=== PATIENT | female | born 1960 | race Caucasian/White ===

== ENCOUNTER 2019-10-24 11:54 | Emergency (ER) | payer OTHER, SELFPAY ==
--- NOTE | 2019-10-24 12:08 | ED.EAR ---
HPI - Ear Problem General Chief complaint: Ear Stated complaint: ear pain Time Seen by Provider: 10/24/19 12:09 History of Present Illness HPI Narrative: Patient presents with right ear pain. Patient states she had a visual telehealth visit last week and was given a steroid injection and placed on Ciprodex eardrops. Patient states pharmacist substituted eardrops states that the ones that she is on now would work as well. Patient presents with increased right ear pain and discomfort. Patient states the pain keeps her up at night. Patient denies any fever no shortness of breath no cough. Related Data Home Medications Medication Instructions Recorded Confirmed naproxen 500 mg BID 10/24/19 10/24/19 Allergies Allergy/AdvReac Type Severity Reaction Status Date / Time codeine Allergy Intermediate Vomiting Verified 11/20/16 15:10 Review of Systems Review of Systems: Narrative: CONSTITUTIONAL: Denies fever, chills, or sweats. EYES: Denies visual changes, redness, or discharge. ENT: Denies rhinorrhea, congestion, sore throat, or otalgia. Right ear pain CARDIOVASCULAR: Denies chest pain, palpitations, or edema. RESPIRATORY: Denies cough or dyspnea. GASTROINTESTINAL: Denies abdominal pain, nausea, vomiting, or diarrhea. GENITOURINARY: Denies dysuria or hematuria. SKIN: Denies rash or itching. MUSCULOSKELETAL: Denies back pain, joint pain, or myalgia. NEUROLOGIC: Denies headache, numbness, or weakness. PSYCHIATRIC: Denies anxiety or depression. [facility] Family History Family History (Updated 10/07/13 @ 07:13 by DOCTOR UNKNOWN) Mother Hypertension Carcinoma of colon Family history of coronary artery disease No family history of malignant neoplasm No family history of hypertension Father Carcinoma of colon Hypertension Social History Social History Smoking status: Never smoker Second hand tobacco smoke exposure: No Alcohol intake: never Gender identity (if verbalized by the patient): Female Comments At time of signature, agree with nursing past medical, surgical, social and family history. There is no relevant family history pertinent to the presenting complaint Exam Narrative: Exam Narrative: GENERAL: Well-appearing, well-nourished, and in no acute distress. HEAD: Normocephalic, atraumatic. EYES: PERRLA and EOMI. ENT: Nares clear, no rhinorrhea or epistaxis. Mucous membranes moist. Moderate erythremia to right canal tenderness with movement, right TM bulging left TM mild dullness mild postnasal drainage NECK: Supple. CHEST: Clear to auscultation. No respiratory distress. HEART: Regular rate and rhythm. No murmur heard. Normal peripheral pulses. ABDOMEN: Soft, nontender, nondistended, normal active bowel sounds. EXTREMITIES: Normal range of motion. No edema. SKIN: Warm, dry, no rash. NEURO: No focal deficits. Alert and oriented x3. [place] Coma Scale Eye Opening: Spontaneous 4 [place] Coma Scale Motor: Obeys Commands 6 [place] Coma Scale Verbal: Oriented 5 [place] Coma Scale Total 15 Course Vital Signs Vital signs: Vital Signs Temperature 36.6 C 10/24/19 12:09 Pulse Rate 104 H 10/24/19 12:09 Respiratory Rate 10/24/19 12:09 Blood Pressure 136/70 10/24/19 12:09 Pulse Oximetry 99 10/24/19 12:09 Temperature 36.6 C 10/24/19 12:09 Pulse Rate 104 H 10/24/19 12:09 Respiratory Rate 10/24/19 12:09 Blood Pressure 136/70 10/24/19 12:09 Pulse Oximetry 99 10/24/19 12:09 Please sub ofloxacin 0.3% plus dexamethasone 0.1% with same directions if insurance prefers. Please BENTLEY schedule a followup visit with your personal physician for further evaluation and treatment. Including recheck and discussion of your blood pressure. If your symptoms persist, change or worsen significantly before you can contact your personal physician then please, without delay, go to the emergency department for further evaluation Medical Decision Making Vital Signs Vital Signs: Vital
[2019-10-24 12:09] VITALS: BP 136/70; PULSE 104; RESP 20; TEMP 36.6; O2SAT 99
== END 2019-10-24 12:24 | disposition home or self-care (01) ==
PROVIDERS: Emergency Provider Nurse Practitioner Family; PCP Internal Medicine
DX: H60.91 Unspecified otitis externa, right ear (principal); H66.91 Otitis media, unspecified, right ear
CPT/HCPCS: 99213; G0463

== ENCOUNTER 2019-11-01 07:50 | Emergency (ER) | payer OTHER, SELFPAY ==
--- NOTE | ~2019-11-01 | CT_ITS ---
EXAMINATION: CT brain wo con DATE: 11/01/2019 09:08 INDICATION: Headache TECHNIQUE: Computed tomography (CT) of the head was performed without intravenous contrast. The dose- length product was 605.33 mGy-cm. Automated exposure control and iterative reconstruction technique w ere employed. COMPARISON: None FINDINGS: No acute intracranial hemorrhage, infarction, mass or mass effect. No ventriculomegaly or m idline shift. Basilar cisterns are patent. Paranasal sinuses and mastoids are pneumatized. No depress ed skull fractures. IMPRESSION: 1. No acute intracranial abnormality. Reviewed, dictated and finalized at location A.
[2019-11-01 08:01] VITALS: BP 126/81; PULSE 110; RESP 18; TEMP 36.5; O2SAT 98
--- NOTE | 2019-11-01 08:34 | ED.HA ---
HPI - Headache General Chief Complaint: Headache Stated Complaint: N/V - head pain Time Seen by Provider: 11/01/19 08:10 Source: patient and family Mode of arrival: ambulatory Limitations: no limitations History of Present Illness HPI Narrative: 59-year-old female Presents complaining of a constant headache for 2+ weeks Different than her more typical migraines because it is global and not unilateral She was previously seen by a nurse practitioner at urgent care and diagnosed with otitis media, she took Augmentin for 10 days, but does not report feeling any better Other associated symptoms besides the headache include generalized fatigue weakness and feeling unwell She is not having a fever, she does not have neck pain, she does not have neurologic symptoms, she does not have visual symptoms, she does not have sinus symptoms Her ear might be feeling a little bit better MD elicited complaint: headache Onset (ago): week(s) Onset description: gradually Location: diffuse Quality & Timing: aching Relieving factors: nothing Associated symptoms: weakness and malaise Related Data Home Medications Medication Instructions Recorded Confirmed naproxen 500 mg BID 10/24/19 10/24/19 Allergies Allergy/AdvReac Type Severity Reaction Status Date / Time codeine Allergy Intermediate Vomiting Verified 11/01/19 08:08 Review of Systems Review of Systems: All systems reviewed & are unremarkable except as noted in HPI and below Constitutional: Constitutional: Denies chills, Reports fatigue, Denies fever(s), Denies headache(s) and Denies night sweats Eyes: Eyes: Denies change in vision, Denies loss of vision and Denies other visual disturbances ENT: Denies headache(s), Denies hoarseness, Denies epistaxis, Denies nasal congestion and Denies sore throat Cardiovascular: Cardiovascular: Denies chest pain, Denies leg edema, Denies palpitations and Denies dyspnea Respiratory: Respiratory: Denies cough, Denies dyspnea and Denies wheezing Gastrointestinal: Gastrointestinal: Denies abdominal pain, Denies diarrhea, Reports nausea and Denies vomiting Genitourinary: Genitourinary: Denies hematuria, Denies urinary frequency and Denies dysuria Musculoskeletal: Musculoskeletal: Denies abnormal gait, Reports myalgias, Denies deformity, Denies joint swelling, Denies muscle weakness and Denies numbness Integumentary/Breasts: Skin/Breast: Denies rash, Denies unusual bruising and Denies wounds Neurologic: Denies abnormal gait, Denies headache(s), Denies focal weakness, Denies loss of vision and Denies numbness Psychiatric: Psychiatric: Reports no additional psychiatric complaints Endocrine: Endocrine: Reports fatigue and Denies palpitations Hematologic/Lymphatic: Hematologic/Lymphatic: Denies easy bleeding and Denies easy bruising Allergic/Immunologic: Allergic/Immunologic: Denies wheezing [facility] Family History Family History (Updated 10/07/13 @ 07:13 by DOCTOR UNKNOWN) Mother Hypertension Carcinoma of colon Family history of coronary artery disease No family history of malignant neoplasm No family history of hypertension Father Carcinoma of colon Hypertension Social History Social History Smoking status: Never smoker Second hand tobacco smoke exposure: No Alcohol intake: never Gender identity (if verbalized by the patient): Female Exam Const: General: well developed Nutritional Appearance: obese Orientation/consciousness: patient oriented x3 (alert) and Other orientation findings (Alert) Limitations: no limitations HENMT: Head: normocephalic and atraumatic Ears: external ears normal and TM abnormal (Effusion on the right) General nose exam: No nasal discharge present and no epistaxis Face and sinus: face symmetric Mouth: Yes tongue normal and Yes moist mucous membranes Throat: other (No exudate, no erythema) Eyes: Conjunctivae: conjunctivae normal Sclera: sclerae normal EOM: EOMs intact bilatera
[2019-11-01 09:05] LABS: Basophils Percent Auto 0.4 % (0.2-1.2); Eosinophils Absolute Auto 0.1 K/mm3 (0-0.3); Eosinophils Percent Auto 1.1 % (0-4.4); Hematocrit 36.6 % (37.0-47.0); Hemoglobin 12.6 g/dL (12.0-15.0); Immature Granulocyte Absolute 0.04 K/mm3 (0.00-0.031); Immature Granulocyte Percent A 0.5 % (0-0.5); Lymphocytes Absolute Auto 3.22 K/mm3 (0.9-3.2); Lymphocytes Percent Auto 43.9 % (18.3-44.2); Mean Corpuscular HGB Conc 34.4 g/dl (32-36); Mean Corpuscular Hemoglobin 29.6 pg (26-34); Mean Corpuscular Volume 85.9 fl (80-100); Mean Platelet Volume 9.7 fl (7.4-10.4); Monocytes Absolute Auto 0.5 K/mm3 (0.1-0.6); Monocytes Percent Auto 7.1 % (2.6-8.5); Neutrophils Absolute Auto 3.4 K/mm3 (1.3-6.7); Platelet Count Result 172 k/mm3 (150-375); Red Blood Count 4.26 M/mm3 (4.2-5.4); Red Cell Distribution Width 14.2 % (11.5-14.5); White Blood Count 7.3 K/mm3 (4.5-10.0)
[2019-11-01 09:19] LABS: Anion Gap 6 mmol/L (8-16); Blood Urea Nitrogen 9 mg/dL (7-17); CRP 6.4 mg/dL (<1.0); Calcium 8.8 mg/dL (8.4-10.2); Carbon Dioxide 26 mmol/L (22-30); Chloride 99 mmol/L (98-107); Estimated CRCL calculation 110 ml/min; Estimated Glomerular Filt Rate > 60; Glucose 132 mg/dL (65-105); Potassium 3.4 mmol/L (3.4-5.0); Sodium 131 mmol/L (137-145)
[2019-11-01] MEDS: LACTATED RINGERS 1,000 ML 999 ML IV CONT (09:20)
[2019-11-01] MEDS: PROCHLORPERAZINE EDISYLATE 10 MG/2 ML VIAL IV PUSH (09:20)
[2019-11-01 09:21] VITALS: BP 121/69; PULSE 98; RESP 18; O2SAT 98
[2019-11-01 12:14] VITALS: BP 106/78; PULSE 103; RESP 18; O2SAT 99
[2019-11-01 12:35] LABS: Appearance CSF Clear (Clear); CSF source CSF; Color CSF Colorless (Colorless)
[2019-11-01 12:36] LABS: Nucleated Cell CSF 3 /uL (0-5); Red Blood Cell CSF 3 (0-2)
[2019-11-01 12:38] LABS: Lymphocytes CSF 67 % (40-80)
[2019-11-01 12:39] LABS: Monocytes CSF 33 % (15-45)
[2019-11-01 13:09] LABS: Glucose CSF 58 mg/dL (40-70); Total Protein CSF 51 mg/dL (12-60)
[2019-11-01] MEDS: KETOROLAC 30 MG/ML VIAL (*BKC) IV PUSH (13:41)
[2019-11-01 13:42] VITALS: BP 133/84; PULSE 104; RESP 18; O2SAT 100
[2019-11-01 20:24] LABS: SARS-CoV-2 RNA PCR Negative
== END 2019-11-01 13:45 | disposition home or self-care (01) ==
PROVIDERS: Emergency Provider Emergency Medicine; PCP Internal Medicine
DX: R51 Headache (principal); Z20.828 Contact with and (suspected) exposure to other viral communicable diseases
CPT/HCPCS: 36415; 62270; 70450; 80048; 82945; 84157; 85025; 86140; 87635; 89051; 96361; 96374; 96375; 99285; C9803; J0780; J1885; J7120; U0003

== ENCOUNTER 2019-12-25 11:23 | Outpatient (NON) | payer OTHER, SELFPAY ==
[2019-12-28 13:59] LABS: SARS-CoV-2 RNA PCR Negative
== END 2019-12-25 11:24 ==
LOC: ANHCOVIDDT 11:24
PROVIDERS: PCP Internal Medicine; Visit Provider Internal Medicine
DX: Z20.828 Contact with and (suspected) exposure to other viral communicable diseases (principal)
CPT/HCPCS: 87635; C9803; U0003

== ENCOUNTER 2019-12-25 13:20 | Emergency (ER) | payer OTHER, SELFPAY ==
[2019-12-25 13:34] VITALS: BP 156/98; PULSE 82; RESP 20; TEMP 35.7; O2SAT 99
--- NOTE | 2019-12-25 13:47 | ED.BACK ---
HPI - Back Pain/Injury General Chief Complaint: Back Pain/Injury Stated Complaint: back pain Time Seen by Provider: 12/25/19 13:48 Source: patient and RN notes reviewed Mode of arrival: ambulatory Limitations: no limitations History of Present Illness HPI Narrative: 59 year old female who presents to [facility] with complaints of pain to her left lower back radiating down her posterior left leg to ankle since November. 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 Patient has been dealing also with DVT in her right leg and pulmonary embolism since early November and is on Eliquis twice daily and has been under the care of a credit control manager at [facility]. Patient states she has been under care of her physician for a wound on her left lower abdomen which she thinks is from a heating pad. Patient states that she has been on antibiotics of Keflex since the 15 of December and she wants the wound looked at also. Patient has picture of wound at first of occurrence with present area decreased at least by 50% with irregular shaped wound with light yellow center and no surrounding redness, total measures 3cm X4cm, no warmth or drainage noted. Patient has been covering with gauze dressing. MD elicited complaint: back pain Pertinent past history: prior back pain Timing: constant Severity: moderate Pain scale (0-10): 7 Similar Symptoms Previously: Yes Treatments prior to arrival: heat therapy and acetaminophen Work related injury: No Related Data Home Medications Medication Instructions Recorded Confirmed apixaban [Eliquis] mg 12/25/19 Allergies Allergy/AdvReac Type Severity Reaction Status Date / Time codeine Allergy Intermediate Vomiting Verified 11/10/19 09:01 Review of Systems Review of Systems: Narrative: CONSTITUTIONAL: Denies fever, chills, or sweats. EYES: Denies visual changes, redness, or discharge. ENT: Denies rhinorrhea, congestion, sore throat, or otalgia. CARDIOVASCULAR: Denies chest pain, palpitations, or edema. RESPIRATORY: Denies any present cough or any acute dyspnea. GASTROINTESTINAL: Denies abdominal pain, nausea, vomiting, or diarrhea. GENITOURINARY: Denies dysuria or hematuria. SKIN: Denies rash or itching.positive for healing wound to left lower abdomen area MUSCULOSKELETAL: Positive for left back pain radiating down posterior left leg to foot,no other stated joint pain, or myalgia. NEUROLOGIC: Denies headache, numbness, or weakness. PSYCHIATRIC: Positive history of anxiety or depression. All systems reviewed & are unremarkable except as noted in HPI and below PMFSH Past Medical History Medical History (Updated 12/25/19 @ 16:41 by Joseline Real NP) DVT (deep venous thrombosis) Pulmonary embolism Surgical History Surgical History (Updated 12/25/19 @ 17:33 by Joseline Real NP) H/O: hysterectomy Hx of cholecystectomy Hx of tonsillectomy Family History Family History (Updated 10/07/13 @ 07:13 by DOCTOR UNKNOWN) Mother Hypertension Carcinoma of colon Family history of coronary artery disease No family history of malignant neoplasm No family history of hypertension Father Carcinoma of colon Hypertension Social History Social History (Updated 12/25/19 @ 17:35 by Joseline Real NP) Smoking status: Never smoker Second hand tobacco smoke exposure: No Alcohol intake: current Alcohol use details: rare social Substance use: never Living arrangements: with family Gender identity (if verbalized by the patient): Female Comments At time of signature, agree with nursing past medical, surgical, social and family history. There is no relevant family history pertinent to the presenting complaint Exam Narrative: Exam Narrative: GENERAL: Well-appearing, well-nourished, and in no acute distress. HEAD: Normocephalic, atraumatic. EYES: PERRLA and EOMI. ENT: Nares clear, no rhinorrhea or epistaxis
== END 2019-12-25 14:24 | disposition home or self-care (01) ==
PROVIDERS: Emergency Provider Registered Nurse; PCP Internal Medicine
DX: M54.32 Sciatica, left side (principal); S31.104D Unspecified open wound of abdominal wall, left lower quadrant without penetration into peritoneal cavity, subsequent encounter; X58.XXXD Exposure to other specified factors, subsequent encounter; Z86.718 Personal history of other venous thrombosis and embolism; Z86.711 Personal history of pulmonary embolism; Z79.01 Long term (current) use of anticoagulants
CPT/HCPCS: 99213; G0463

== ENCOUNTER 2021-04-10 12:43 | Emergency (ER) | payer OTHER, SELFPAY ==
--- NOTE | 2021-04-10 12:47 | ED.URI ---
HPI - URI/Sore Throat General Chief Complaint: Headache Stated Complaint: sinus pain Time Seen by Provider: 04/10/21 13:15 Source: patient, RN notes reviewed and old records reviewed Mode of arrival: ambulatory Limitations: no limitations History of Present Illness HPI Narrative: 60-year-old female [facility] of sweating dizziness and headache. Reports started to feel pressure, like a sinus infection, on left side of face this morning at work and not feeling well. She left work and stopped it [facility] on the way home. Reports pain and pressure on left sinuses. Had sinus headache this morning. Admits this does not feel like her usual migraine headache. Denies vision changes, blurry vision, or floaters. Reports mild runny nose this morning. [facility] at [facility]. Reports feeling dizzy, sensitive to light, and sweating. Denies sore throat or earache or cough. Denies chest pain or discomfort. Laying on exam table, denies dizziness while laying down. Continues to feel nauseated. Denies pain with urination or urinary frequency. Denies denies back pain MD elicited complaint: cough, sore throat, rhinorrhea and nasal congestion Treatments prior to arrival: none Related Data Home Medications Medication Instructions Recorded Confirmed apixaban [Eliquis] 5 mg PO BID 12/25/19 04/10/21 spironolactone 50 mg PO DAILY 04/06/21 04/10/21 esomeprazole magnesium [Nexium] 20 mg PO DAILY 04/10/21 04/10/21 Allergies Allergy/AdvReac Type Severity Reaction Status Date / Time codeine AdvReac Intermediate Vomiting Verified 04/10/21 13:08 Review of Systems Review of Systems: CONSTITUTIONAL: Denies malaise, chills, or fever. Reports sweating EYES: Denies visual changes, redness, or discharge. ENT: Denies otalgia and sore throat. Reports mild runny nose. Reports left-sided sinus pressure. CARDIOVASCULAR: Denies chest pain, palpitations, or edema. RESPIRATORY: Denies cough. Denies dyspnea, shortness of breath or difficulty breathing.. GASTROINTESTINAL: Denies abdominal pain or diarrhea. Vomited x1, feels nauseated. SKIN: Denies rash or itching. MUSCULOSKELETAL: Denies myalgia. NEUROLOGIC: Reports headache. All systems reviewed & are unremarkable except as noted in HPI and below PMFSH Past Medical History Medical History DVT (deep venous thrombosis) Pulmonary embolism Surgical History Surgical History H/O: hysterectomy Hx of cholecystectomy Hx of tonsillectomy Family History Family History Mother Hypertension Carcinoma of colon Family history of coronary artery disease No family history of malignant neoplasm No family history of hypertension Father Carcinoma of colon Hypertension Social History Social History Smoking status: Never smoker Second hand tobacco smoke exposure: No Alcohol intake: current Alcohol use details: rare social Substance use: never Gender identity (if verbalized by the patient): Female Spiritual care concerns: No Comments At time of signature, agree with nursing past medical, surgical, social and family history. There is no relevant family history pertinent to the presenting complaint Exam Narrative: GENERAL: Alert well-nourished, female and in no acute distress. Mildly ill-appearing. Pleasant, cooperative, casually dressed. HEAD: Normocephalic atraumatic EYES: PERRLA, conjunctivae clear, photosensitivity. Fundus within normal limits. ENT: Nares clear, turbinates pink and edematous, clear discharge. Mucous membranes moist. TM intact pearly corrales with dull light reflex bilaterally; no tragal tenderness. Oropharynx nonerythematous without lesions. Tonsils nonedematous and without exudate, no drooling, no hoarseness, no trismus, uvula
[2021-04-10 13:03] VITALS: BP 144/81; PULSE 81; RESP 20; TEMP 36.4; O2SAT 98
[2021-04-10] MEDS: ONDANSETRON HCL ODT 4 MG TABLET SUBLINGUAL (13:21)
[2021-04-10] MEDS: IBUPROFEN 400 MG TABLET 800 MG PO (13:32)
== END 2021-04-10 14:06 | disposition home or self-care (01) ==
PROVIDERS: Emergency Provider Nurse Practitioner Family; PCP Emergency Medicine
DX: J34.89 Other specified disorders of nose and nasal sinuses (principal); R11.2 Nausea with vomiting, unspecified; R51.9 Headache, unspecified; Z86.718 Personal history of other venous thrombosis and embolism; Z86.711 Personal history of pulmonary embolism
CPT/HCPCS: 99213; A9270; G0463

== ENCOUNTER 2021-06-20 10:38 | Outpatient (CLI) | payer OTHER, SELFPAY ==
--- NOTE | ~2021-06-20 | MR_ITS ---
EXAMINATION: MR lumbar spine wo con DATE: 06/20/2021 11:11 INDICATION: Lumbago with sciatica TECHNIQUE: Magnetic resonance imaging (MRI) of the lumbar spine was performed without intravenous con trast. Sequences included sagittal T2-weighted FSE, sagittal T2-weighted FS FSE, sagittal T1-weighted FSE, and axial T2-weighted FSE. COMPARISON: 02/07/2018 FINDINGS: Alignment is normal. Vertebral body heights are normal. Fibrofatty degenerative endplate changes at L 5-S1. Otherwise normal marrow signal.. And mild disc desiccation with minimal disc height loss at L3- L4 and L4-L5. Interval progression of now mild to moderate disc height loss with annular fissure and posterior disc extrusion at L5-S1. The conus medullaris terminates at L1-L2. There is normal signal i n the caudal spinal cord. Paravertebral soft tissues are unremarkable. The following disc levels are specifically discussed: T12-L1: The disc does not extend beyond the endplate margin. There is mild bilateral facet joint oste oarthritis. There is no neural foraminal stenosis. There is no central canal stenosis. L1-L2: The disc does not extend beyond the endplate margin. There is mild bilateral facet joint osteo arthritis. There is no neural foraminal stenosis. There is no central canal stenosis. L2-L3: The disc does not extend beyond the endplate margin. There is mild bilateral facet joint osteo arthritis. There is no neural foraminal stenosis. There is no central canal stenosis. L3-L4: Minimal disc bulge with annular fissure. There is mild to moderate bilateral facet joint osteo arthritis. There is mild bilateral neural foraminal stenosis. There is no central canal stenosis. L4-L5: Disc is mildly bulging with annular fissure. There is moderate left and severe right facet art nt osteoarthritis. There is mild to moderate bilateral neural foraminal stenosis. There is mild centr al canal stenosis. L5-S1: Disc is mildly bulging with superimposed annular fissure and small left paracentral disc extru ruth with disc material extending a few millimeters caudal to the level of the superior endplate of S 1 and narrowing the left lateral recess exerting mass effect upon the traversing left S1 nerve root. There is moderate bilateral, left greater than right, facet joint osteoarthritis. There is moderate l eft and mild to moderate right neural foraminal stenosis. There is mild central canal stenosis. IMPRESSION: 1. Slight progression in moderate spondylosis at L5-S1 with left paracentral disc extrusion which monet rows the left lateral recess and exerts mass effect upon the traversing left S1 nerve root. 2. No significant change in mild spondylosis of the more cephalad lumbar spine. Reviewed, dictated and finalized at location A. IMPRESSION: 1. Slight progression in moderate spondylosis at L5-S1 with left paracentral di sc extrusion which narrows the left lateral recess and exerts mass effect upon the traversing left S1 nerve root. 2. No significant change in mild spondylosis of the more cephalad lumbar spine.
== END 2021-06-20 10:39 | disposition home or self-care (01) ==
PROVIDERS: PCP Emergency Medicine; Visit Provider Physical Medicine & Rehabilitation
DX: M47.897 Other spondylosis, lumbosacral region (principal)
CPT/HCPCS: 72148

== ENCOUNTER 2023-07-05 09:36 | Emergency (ER) | payer OTHER, SELFPAY ==
[2023-07-05 09:48] VITALS: BP 115/70; PULSE 81; RESP 18; TEMP 36.4; O2SAT 97
--- NOTE | 2023-07-05 10:04 | ED.SKABFB ---
HPI - Skin/Abscess/Foreign Bdy General Chief complaint: Skin/Abscess/Foreign Body Stated complaint: Sore on Groin Time Seen by Provider: 07/05/23 09:58 Source: patient and RN notes reviewed Mode of arrival: ambulatory Limitations: no limitations History of Present Illness HPI narrative: Patient presents today complaining of a sore to her left groin x1 week. States it became more painful and swollen last night. Denies any injury or break in the skin that she is aware of. No history of staph or MRSA. Related Data Home Medications Medication Instructions Recorded Confirmed spironolactone 50 mg tablet 50 mg PO DAILY 04/06/21 04/10/21 esomeprazole magnesium 20 mg 20 mg PO DAILY 04/10/21 04/10/21 capsule,delayed release (Nexium) bupropion HCl 300 mg 24 hr tablet, mg PO 07/05/23 extended release erenumab-aooe 70 mg/mL mg subcut 07/05/23 subcutaneous auto-injector (Aimovig Autoinjector) sumatriptan succinate 100 mg tablet mg PO 07/05/23 Allergies Allergy/AdvReac Type Severity Reaction Status Date / Time codeine AdvReac Intermediate Vomiting Verified 07/05/23 09:50 Review of Systems Review of Systems: CONSTITUTIONAL: Denies body aches, fever, chills, or sweats. EYES: Denies visual changes, redness, or discharge. ENT: Denies rhinorrhea, congestion, sore throat, or otalgia. CARDIOVASCULAR: Denies chest pain, palpitations, or edema. RESPIRATORY: Denies cough or dyspnea. GASTROINTESTINAL: Denies abdominal pain, nausea, vomiting, or diarrhea. GENITOURINARY: Denies dysuria or hematuria. SKIN: + sore to left groin MUSCULOSKELETAL: Denies back pain, joint pain, or myalgia. NEUROLOGIC: Denies headache, numbness, tingling, or weakness. PSYCH: Denies depression or anxiety. [facility] Past Medical History Medical History Anxiety Asthma DVT (deep venous thrombosis) Hyperlipidemia Hypertension AYDIN on CPAP PCOS (polycystic ovarian syndrome) Pulmonary embolism Surgical History Surgical History H/O: hysterectomy Hx of cholecystectomy Hx of tonsillectomy Family History Family History Mother Hypertension Carcinoma of colon Family history of coronary artery disease No family history of malignant neoplasm No family history of hypertension Father Carcinoma of colon Hypertension Social History Social History Smoking status: Never smoker Second hand tobacco smoke exposure: No Alcohol intake: current Alcohol use details: rare social Substance use: never Living arrangements: with family Gender identity (if verbalized by the patient): Female Spiritual care concerns: No Comments At time of signature, I have reviewed and agree with nursing past medical, surgical, social and family history unless otherwise noted. Please see nursing chart for further information. There is no relevant family history pertinent to the presenting complaint Exam Narrative: GENERAL: Well-appearing, well-nourished, and in no acute distress. HEAD: Normocephalic, atraumatic. EYES: EOMI. No redness or drainage. ENT: Mucous membranes pink and moist. NECK: Normal AROM. Supple. EXTREMITIES: Normal range of motion. No edema. SKIN: Warm, dry, no rash. Capillary refill normal. Normal skin turgor. 11 x 4 cm area of redness to the left groin fold without induration with 3 x 1 cm area of slight fluctuance in and induration in the center. Tender to palpation. No edema. NEURO: No focal deficits. Alert and oriented x3. Gait steady. PSYCH: Normal affect. No signs of depression or anxiety. Course Course Level of Care: Express Care Visit Vital Signs Vital signs: Vital Signs Temperature 97.5 F L 07/05/23 09:48 Pulse Rate 81 07/05/23 09:48 Respiratory Rate 18
[2023-07-05] MEDS: LIDO 1%/EPINEPHRINE 1:100,000 20 ML VIAL INFILTRATE (10:09)
== END 2023-07-05 10:48 | disposition home or self-care (01) ==
PROVIDERS: Emergency Provider Nurse Practitioner; PCP Nurse Practitioner Family
DX: L02.214 Cutaneous abscess of groin (principal); J45.909 Unspecified asthma, uncomplicated; E78.5 Hyperlipidemia, unspecified; I10 Essential (primary) hypertension; G47.33 Obstructive sleep apnea (adult) (pediatric); E28.2 Polycystic ovarian syndrome; Z86.711 Personal history of pulmonary embolism
CPT/HCPCS: 10061; 99213; G0463